=== PATIENT | male | born 1980 | race Caucasian/White ===

== ENCOUNTER 2018-11-16 03:05 | Emergency (ER) | payer SELFPAY ==
[~2018-11-16] VITALS: Ht 175.3 cm; Wt 82.0 kg
[~2018-11-16 03:05] MED LIST: CYCL10TA7 PO; IBUP-1542 PO
[2018-11-16 03:07] VITALS: Ht 175.3 cm; Wt 82.0 kg
[2018-11-16] MEDS ORDERED: LACTATED RINGER'S 1,000 ML IV STA (03:15)
[2018-11-16] MEDS ORDERED: ONDANSETRON 4 MG INJ IV STA (03:15)
[2018-11-16] MEDS ORDERED: HYDROmorphONE 1 MG/ML SYG IV STA (03:15)
[2018-11-16] MEDS ORDERED: SOD CHLORIDE 0.9% 1,000 ML IV STA (03:15)
[2018-11-16] MEDS ORDERED: DIPHTH/TET/ACEL PERTUSS (ADULT) 0.5 ML VIAL IM* ONE (03:30)
[2018-11-16] MEDS ORDERED: CEFAZOLIN 1 GM/50 ML (PMX) 50 ML IVPB SCH (03:30)
[2018-11-16] MEDS ORDERED: KETOROLAC 15 MG INJ IV STA (04:21)
[2018-11-16 07:00] VITALS: BP 123/78; PULSE 72; RESP 15
== END 2018-11-16 07:00 | disposition home or self-care (01) ==
LOC: E/R 03:05
DX: S06.0X0A Concussion without loss of consciousness, initial encounter (principal); S00.03XA Contusion of scalp, initial encounter; S20.211A Contusion of right front wall of thorax, initial encounter; S53.401A Unspecified sprain of right elbow, initial encounter; R40.2142 Coma scale, eyes open, spontaneous, at arrival to emergency department; R40.2362 Coma scale, best motor response, obeys commands, at arrival to emergency department; R40.2252 Coma scale, best verbal response, oriented, at arrival to emergency department; Y08.89XA Assault by other specified means, initial encounter; Z23 Encounter for immunization; Z87.891 Personal history of nicotine dependence
CPT/HCPCS: 36415; 70450; 71045; 71250; 72125; 73080; 74176; 80053; 80307; 83690; 85025; 85610; 85730; 90471; 90715; 96365; 96375; 99285; J0690; J1170; J1885; J2405; J7030; J7120